=== PATIENT | male | born 1950 | race Caucasian/White ===

== ENCOUNTER 2018-05-13 07:15 | Emergency (ER) | payer OTHER ==
[~2018-05-13] VITALS: Ht 185.4 cm; Wt 90.9 kg
[~2018-05-13 07:15] MED LIST: PRILOSEC 20MG20 MG PO; TUMS500 MG PO; TYLENOL 500MG500 MG PO
[2018-05-13 07:22] VITALS: TEMP 97.4
[2018-05-13 07:31] LABS: HEMATOCRIT 42.4 % (42.0-52.0); HEMOGLOBIN 13.9 g/dl (13.5-18.0); MEAN CELL VOLUME 89 fl (80.0-100.0); MEAN CORPUSCULAR HEMOGLOBIN 29 pg (27.0-31.0); MEAN CORPUSCULAR HGB CONC 33 g/dl (33.0-37.0); MEAN PLATELET VOLUME 9.7 fl (7.4-10.4); PLATELET COUNT 196 K/mm3 (130-400); RED BLOOD COUNT 4.76 M/mm3 (4.20-5.60); REDCELL DISTRIBUTION WIDTH-CV 13.2 % (11.5-14.5)
[2018-05-13 07:50] LABS: BAND 2 % (0-10); BASOPHIL 1 % (0-2); EOSINOPHIL 4 % (0-4); LYMPHOCYTE 37 % (20.0-51.0); NEUTROPHILS 52 % (42.0-75.2); PLATELET ESTIMATE NORMAL (NORMAL)
[2018-05-13 07:53] LABS: ALBUMIN 4.4 gm/dL (3.5-5.0); BILIRUBIN,TOTAL 0.5 mg/dL (0.0-1.0); CALCIUM 9.1 mg/dL (8.4-10.2); CREATININE, serum 0.95 mg/dL (0.66-1.25); POTASSIUM 3.9 mmol/L (3.4-5.0); TOTAL PROTEIN 7.5 gm/dL (6.4-8.2)
[2018-05-13 08:02] LABS: PROTHROMBIN TIME 11.2 SECONDS (9.7-12.8)
[2018-05-13 08:20] LABS: COLLECTION METHOD CLEAN CATCH
[2018-05-13 08:27] LABS: PH 6 (5-8); SQUAMOUS EPITHELIAL None Seen /hpf; URINE APPEARANCE Clear; URINE BACTERIA None Seen /hpf; URINE BILIRUBIN Negative (NEGATIVE); URINE BLOOD Negative (NEGATIVE); URINE COLOR Yellow; URINE GLUCOSE Negative (NEGATIVE); URINE KETONE Negative (NEGATIVE); URINE LEUKOCYTE ESTERASE Negative (NEGATIVE); URINE NITRATE Negative (NEGATIVE); URINE PROTEIN(semi-quant) 2+ (NEGATIVE); URINE RBC 0-2 /hpf; URINE UROBILINOGEN Negative (NEGATIVE)
[2018-05-13] MEDS ORDERED: ANTIVERT 25MG25 MG PO (12:37)
[2018-05-13] MEDS ORDERED: OMNICEF 300MG300 MG PO (12:44)
[2018-05-13 13:47] VITALS: BP 155/96; PULSE 70
== END 2018-05-13 13:15 | disposition home or self-care (01) ==
LOC: COL.ER 07:15
PROVIDERS: Emergency Medicine
DX: H81.399 Other peripheral vertigo, unspecified ear (principal)
CPT/HCPCS: A9585; J2060; J2405; J7030

== ENCOUNTER 2019-11-26 11:17 | Inpatient (IN) | payer OTHER ==
[~2019-11-26] VITALS: Ht 185.4 cm; Wt 80.6 kg
[2019-11-26] VITALS (233 sets, daily range): BP systolic 129–162; BP diastolic 70–82; PULSE 75–88; TEMP 98.1–98.2; O2SAT 89–95
[~2019-11-26 11:17] MED LIST changes: +ANTIVERT 25MG25 MG PO; +OMNICEF 300MG300 MG PO
[2019-11-26 11:41] LABS: BASO % 0.1 % (0.0-2.0); EOS % 0.3 % (0-4.0); GRAN # 9.1 (1.4-6.5); GRAN % 63.6 % (42.2-75.2); HEMATOCRIT 39.6 % (42.0-52.0); HEMOGLOBIN 13.2 g/dl (13.5-18.0); LYMPH # 4.6 (1.2-3.4); LYMPH % 32.2 % (20.0-51.0); MEAN CELL VOLUME 87 fl (80.0-100.0); MEAN CORPUSCULAR HEMOGLOBIN 29 pg (27.0-31.0); MEAN CORPUSCULAR HGB CONC 33 g/dl (33.0-37.0); MEAN PLATELET VOLUME 10.2 fl (7.4-10.4); MONO # 0.5 (0.1-0.6); MONO % 3.4 % (1.7-9.3); PLATELET COUNT 202 K/mm3 (130-400); RED BLOOD COUNT 4.58 M/mm3 (4.20-5.60); REDCELL DISTRIBUTION WIDTH-CV 13.7 % (11.5-14.5)
[2019-11-26 11:55] LABS: ALBUMIN 4.4 gm/dL (3.5-5.0); BILIRUBIN,TOTAL 0.6 mg/dL (0.0-1.0); CALCIUM 9.5 mg/dL (8.4-10.2); CREATININE, serum 0.69 (0.66-1.25); POTASSIUM 4.3 mmol/L (3.4-5.0); TOTAL PROTEIN 7.7 gm/dL (6.4-8.2)
[2019-11-26 15:04] LABS: COLLECTION METHOD CLEAN CATCH
[2019-11-26 15:32] LABS: MUCOUS Present /lpf; PH 7 (5-8); SQUAMOUS EPITHELIAL None Seen /hpf; URINE APPEARANCE Clear; URINE BACTERIA None Seen /hpf; URINE BILIRUBIN Negative (NEGATIVE); URINE BLOOD Negative (NEGATIVE); URINE COLOR Yellow; URINE GLUCOSE Negative (NEGATIVE); URINE KETONE Negative (NEGATIVE); URINE LEUKOCYTE ESTERASE Negative (NEGATIVE); URINE NITRATE Negative (NEGATIVE); URINE PROTEIN(semi-quant) Negative (NEGATIVE); URINE RBC 0-2 /hpf; URINE UROBILINOGEN Negative (NEGATIVE)
[2019-11-26 15:58] LABS: TROPONIN-I < 0.012 ng/mL (0.000-0.035)
[2019-11-27] VITALS (437 sets, daily range): BP systolic 133–184; BP diastolic 70–98; PULSE 57–76; TEMP 97.6–98.7; O2SAT 90–97
[2019-11-27 05:19] LABS: BASO # 0.1 (0.0-0.2); BASO % 0.4 % (0.0-2.0); EOS # 0.1 (0.0-0.7); EOS % 0.4 % (0-4.0); GRAN # 8.4 (1.4-6.5); GRAN % 60.1 % (42.2-75.2); HEMOGLOBIN 11.6 g/dl (13.5-18.0); LYMPH # 4.4 (1.2-3.4); LYMPH % 31.7 % (20.0-51.0); MEAN CELL VOLUME 88 fl (80.0-100.0); MEAN CORPUSCULAR HEMOGLOBIN 29 pg (27.0-31.0); MEAN CORPUSCULAR HGB CONC 33 g/dl (33.0-37.0); MEAN PLATELET VOLUME 10.1 fl (7.4-10.4); MONO % 6.8 % (1.7-9.3); PLATELET COUNT 179 K/mm3 (130-400); RED BLOOD COUNT 4.03 M/mm3 (4.20-5.60); REDCELL DISTRIBUTION WIDTH-CV 13.9 % (11.5-14.5)
[2019-11-27 05:21] LABS: HEMATOCRIT 35.4 % (42.0-52.0)
[2019-11-27 05:45] LABS: ALBUMIN 3.5 gm/dL (3.5-5.0); BILIRUBIN,TOTAL 0.6 mg/dL (0.0-1.0); CALCIUM 8.6 mg/dL (8.4-10.2); CREATININE, serum 0.74 (0.66-1.25); POTASSIUM 3.6 mmol/L (3.4-5.0); TOTAL PROTEIN 6.2 gm/dL (6.4-8.2)
[2019-11-27 15:46] LABS: CSF APPEARANCE CLEAR; CSF COLOR COLORLESS; CSF RBC 0 /mm3 (0-0)
[2019-11-27 15:56] LABS: CSF POLYMORPHONUCLEAR 0 % (0-6)
[2019-11-27 15:57] LABS: CSF MONONUCLEAR 100 % (70-100)
[2019-11-27 21:34] LABS: TOTAL PROTEIN,CSF 42 mg/dL (15-45)
[2019-11-28] VITALS (8 sets, daily range): BP systolic 168–192; BP diastolic 78–96; PULSE 62–77; TEMP 97.8–98.5
[2019-11-28 08:05] LABS: HEMATOCRIT 37.6 % (42.0-52.0); HEMOGLOBIN 12.4 g/dl (13.5-18.0); MEAN CELL VOLUME 88 fl (80.0-100.0); MEAN CORPUSCULAR HEMOGLOBIN 29 pg (27.0-31.0); MEAN CORPUSCULAR HGB CONC 33 g/dl (33.0-37.0); MEAN PLATELET VOLUME 9.7 fl (7.4-10.4); PLATELET COUNT 171 K/mm3 (130-400); RED BLOOD COUNT 4.28 M/mm3 (4.20-5.60); REDCELL DISTRIBUTION WIDTH-CV 13.9 % (11.5-14.5)
[2019-11-28 08:22] LABS: CALCIUM 8.8 mg/dL (8.4-10.2); CREATININE, serum 0.9 (0.66-1.25); POTASSIUM 3.5 mmol/L (3.4-5.0)
[2019-11-28 08:30] LABS: EOSINOPHIL 1 % (0-4); LYMPHOCYTE 36 % (20.0-51.0); NEUTROPHILS 61 % (42.0-75.2); PLATELET ESTIMATE NORMAL (NORMAL)
[2019-11-29] VITALS (8 sets, daily range): BP systolic 156–200; BP diastolic 82–92; PULSE 57–68; TEMP 97.6–99.2
[2019-11-29 06:25] LABS: HEMATOCRIT 41.6 % (42.0-52.0); HEMOGLOBIN 13.2 g/dl (13.5-18.0); MEAN CELL VOLUME 89 fl (80.0-100.0); MEAN CORPUSCULAR HEMOGLOBIN 28 pg (27.0-31.0); MEAN CORPUSCULAR HGB CONC 32 g/dl (33.0-37.0); MEAN PLATELET VOLUME 10.1 fl (7.4-10.4); PLATELET COUNT 181 K/mm3 (130-400); REDCELL DISTRIBUTION WIDTH-CV 13.7 % (11.5-14.5)
[2019-11-29 06:33] LABS: CALCIUM 9.2 mg/dL (8.4-10.2); CREATININE, serum 0.97 (0.66-1.25); POTASSIUM 3.7 mmol/L (3.4-5.0)
[2019-11-29 08:10] LABS: EOSINOPHIL 3 % (0-4); NEUTROPHILS 49 % (42.0-75.2); PLATELET ESTIMATE NORMAL (NORMAL)
[2019-11-29 08:22] LABS: LYMPHOCYTE 40 % (20.0-51.0)
[2019-11-29 08:37] LABS: PATHOLOGY DIFF REVIEW OK
[2019-11-30] VITALS (7 sets, daily range): BP systolic 132–196; BP diastolic 48–93; PULSE 58–71; TEMP 97.6–99.1
[2019-11-30 12:34] LABS: ALBUMIN 3.7 gm/dL (3.5-5.0); BILIRUBIN,TOTAL 0.8 mg/dL (0.0-1.0); CALCIUM 9.2 mg/dL (8.4-10.2); CREATININE, serum 0.92 (0.66-1.25); TOTAL PROTEIN 6.3 gm/dL (6.4-8.2)
[2019-11-30 13:04] LABS: TSH w REFLEX 2.63 uIU/mL (0.465-4.680)
[2019-11-30 13:07] LABS: HEMATOCRIT 40.8 % (42.0-52.0); HEMOGLOBIN 13.5 g/dl (13.5-18.0); MEAN CELL VOLUME 88 fl (80.0-100.0); MEAN CORPUSCULAR HEMOGLOBIN 29 pg (27.0-31.0); MEAN CORPUSCULAR HGB CONC 33 g/dl (33.0-37.0); MEAN PLATELET VOLUME 10.4 fl (7.4-10.4); PLATELET COUNT 204 K/mm3 (130-400); RED BLOOD COUNT 4.65 M/mm3 (4.20-5.60)
[2019-12-01] VITALS (8 sets, daily range): BP systolic 99–172; BP diastolic 66–112; PULSE 60–76; TEMP 97.1–98.3
[2019-12-01 07:13] LABS: HEMATOCRIT 41.2 % (42.0-52.0); HEMOGLOBIN 13.4 g/dl (13.5-18.0); MEAN CELL VOLUME 87 fl (80.0-100.0); MEAN CORPUSCULAR HEMOGLOBIN 28 pg (27.0-31.0); MEAN CORPUSCULAR HGB CONC 33 g/dl (33.0-37.0); MEAN PLATELET VOLUME 10.3 fl (7.4-10.4); PLATELET COUNT 205 K/mm3 (130-400); RED BLOOD COUNT 4.74 M/mm3 (4.20-5.60); REDCELL DISTRIBUTION WIDTH-CV 13.7 % (11.5-14.5)
[2019-12-01 07:25] LABS: CALCIUM 9.2 mg/dL (8.4-10.2); CREATININE, serum 0.94 (0.66-1.25); POTASSIUM 3.4 mmol/L (3.4-5.0)
[2019-12-01 08:19] LABS: BAND 7 % (0-10); BASOPHIL 2 % (0-2); EOSINOPHIL 2 % (0-4); NEUTROPHILS 39 % (42.0-75.2)
[2019-12-01 08:20] LABS: LYMPHOCYTE 41 % (20.0-51.0)
[2019-12-02 01:04] VITALS: BP 126/75; PULSE 60; TEMP 97.6
[2019-12-02 04:12] VITALS: BP 127/74; PULSE 56; TEMP 97.6
[2019-12-02 07:54] VITALS: BP 126/69; PULSE 60; TEMP 98
[2019-12-02 12:10] VITALS: BP 135/82; PULSE 65; TEMP 97.7
[2019-12-02 15:38] VITALS: BP 109/68; PULSE 60; TEMP 97.7
[2019-12-02 19:42] VITALS: BP 136/79; PULSE 68; TEMP 97.3
[2019-12-02 20:15] LABS: CREATININE, serum 0.94 (0.66-1.25)
[2019-12-02 20:16] LABS: URINE TOTAL VOLUME 625 mL
[2019-12-02 20:32] LABS: URINE CREATININE CLEARANCE 62.4 mL/min (97-137)
[2019-12-03 00:19] VITALS: BP 127/77; PULSE 60; TEMP 98.3
[2019-12-03 04:10] VITALS: BP 147/78; PULSE 62; TEMP 97.5
[2019-12-03 08:00] VITALS: BP 151/88; PULSE 62; TEMP 98.8
[2019-12-03 09:31] VITALS: BP 139/85; PULSE 65; TEMP 97.8
[2019-12-03 11:03] LABS: HEMATOCRIT 43.4 % (42.0-52.0); HEMOGLOBIN 14.3 g/dl (13.5-18.0); MEAN CELL VOLUME 88 fl (80.0-100.0); MEAN CORPUSCULAR HEMOGLOBIN 29 pg (27.0-31.0); MEAN CORPUSCULAR HGB CONC 33 g/dl (33.0-37.0); PLATELET COUNT 238 K/mm3 (130-400); RED BLOOD COUNT 4.93 M/mm3 (4.20-5.60); REDCELL DISTRIBUTION WIDTH-CV 14.1 % (11.5-14.5)
[2019-12-03 11:14] LABS: CALCIUM 9.5 mg/dL (8.4-10.2); CREATININE, serum 1.31 (0.66-1.25); POTASSIUM 3.8 mmol/L (3.4-5.0)
[2019-12-03 13:14] VITALS: BP 107/49; PULSE 88; TEMP 98.3
[2019-12-03 13:17] LABS: BAND 9 % (0-10); LYMPHOCYTE 47 % (20.0-51.0); NEUTROPHILS 40 % (42.0-75.2)
[2019-12-03] MEDS ORDERED: ZESTRIL40 MG PO (13:17)
[2019-12-03] MEDS ORDERED: NORVASC 10MG10 MG PO (13:17)
[2019-12-03 13:18] LABS: PLATELET ESTIMATE NORMAL (NORMAL)
[2019-12-04 11:42] LABS: HSV 2 DNA PCR QUAL Not Detected (())
== END 2019-12-03 16:30 | disposition home or self-care (01) | DRG 305 ==
LOC: COL.ER 11:17 → IMCU 15:03 → MEDICAL 15:03 → IMCU 11-27 16:27 → MEDICAL 11-27 18:31
PROVIDERS: Family Medicine; Internal Medicine Nephrology; Nurse Practitioner Family; Physician Assistant; Student in an Organized Health Care Education/Training Program; ADMIT Student in an Organized Health Care Education/Training Program
PROC: 009U3ZX Drainage of Spinal Canal, Percutaneous Approach, Diagnostic (ICD-10-PCS; principal; 2019-11-27)
DX: I16.1 Hypertensive emergency (principal); I67.4 Hypertensive encephalopathy; R65.10 Systemic inflammatory response syndrome (SIRS) of non-infectious origin without acute organ dysfunction; Z66 Do not resuscitate; R73.9 Hyperglycemia, unspecified; R42 Dizziness and giddiness; I95.9 Hypotension, unspecified; Z87.891 Personal history of nicotine dependence
CPT/HCPCS: 99223-AI; 99232-AI; 99233-AI; A9585; J0360; J0692; J1650; J1885; J2405; J2550; J3370; J7030; J7040; J7050; J7120; Q9967

== ENCOUNTER 2021-08-20 17:27 | Observation (INO) | payer OTHER ==
[~2021-08-20] VITALS: Ht 185.4 cm; Wt 92.3 kg
[~2021-08-20 17:27] MED LIST changes: +HCTZ 25MG TAB25 MG PO; +LIPITOR 10MG10 MG PO; +NORVASC 10MG10 MG PO; +NORVASC 5MG5 MG/TAB PO; +PLAVIX 75MG TAB75 MG PO; +ZESTRIL40 MG PO
[2021-08-20 17:47] LABS: BASO # 0.1 K/mm3 (0.0-0.2); BASO % 0.3 % (0.0-2.0); EOS % 0.1 % (0.0-4.0); GRAN # 13.7 K/mm3 (1.4-6.5); GRAN % 71.9 % (42.2-75.2); HEMATOCRIT 43.1 % (42.0-52.0); LYMPH # 4.4 K/mm3 (1.2-3.4); LYMPH % 22.8 % (20.0-51.0); MEAN CELL VOLUME 87 fl (80.0-100.0); MEAN CORPUSCULAR HEMOGLOBIN 28 pg (27-31); MEAN CORPUSCULAR HGB CONC 33 g/dl (33.0-37.0); MEAN PLATELET VOLUME 9.9 fl (7.4-10.4); MONO # 0.8 K/mm3 (0.1-0.6); MONO % 4.3 % (1.7-9.3); PLATELET COUNT 256 K/mm3 (130-400); RED BLOOD COUNT 4.97 M/mm3 (4.20-5.60)
[2021-08-20 18:08] LABS: ALBUMIN 4.4 gm/dL (3.4-4.8); BILIRUBIN,TOTAL 0.6 mg/dL (0.2-1.2); C-REACTIVE PROTEIN 0.56 mg/dL (0.00-0.50); CALCIUM 9.5 mg/dL (8.4-10.2); CREATININE, serum 1.36 mg/dL (0.72-1.25); POTASSIUM 4.6 mmol/L (3.5-4.5)
[2021-08-20] MEDS ORDERED: ASPIRIN 81M81 MG/TA2 PO (18:13)
--- NOTE | 2021-08-20 23:00 | NUR ---
PT ARRIVED TO ROOM VIA ER CART, AMBULATED FROM CART TO BED WITH SBA. GAIT IS STEADY, PT USES CANE FROM HOME. IVF INFUSING INTO PERIPHERAL IV. PT IS PLEASANT, DENIES PAIN, STATES THAT "WHATEVER THAT SHOT WAS THAT THEY GAVE ME REALLY WORKED". PT STATES THAT HE IS HUNGRY, EATS 2 CUPS OF BEEF BROTH ET CRACKERS. PT EDUCATED ON NPO STATUS AFTER MIDNIGHT R/T POSSIBILITY OF SURGERY. PT ALSO EDUCATED ON PAIN ET MEDICATIONS, VERBALIZES UNDERSTANDING. USES URINAL X1. URINE IS BALWINDER ET CLOUDY BUT NO STONES ARE PRESENT WHEN STRAINED. PT DENIES OTHER NEEDS, TALKS TO GIRLFRIEND ON PHONE. RESPIRATIONS UNLABORED. CALL LIGHT WITHIN REACH.
[2021-08-21] VITALS (9 sets, daily range): BP systolic 102–142; BP diastolic 52–79; PULSE 74–83; TEMP 97.6–98.3
--- NOTE | 2021-08-21 01:36 | NUR ---
PT IS RESTING IN BED, HAS BEEN SLEEPING. PT HAS DENIED PAIN WHEN ASKED IF HE IS HAVING ANY. RESPIRATIONS UNLABORED. CALL LIGHT WITHIN REACH.
--- NOTE | 2021-08-21 03:59 | NUR ---
PT IS SLEEPING. IVF INFUSING. RESPIRATIONS UNLABORED. CALL LIGHT WITHIN REACH.
--- NOTE | 2021-08-21 07:16 | NUR ---
Pt left for procedure at this time.
[2021-08-21] MEDS ORDERED: PERCOCET 325 MG1 TA2 PO (08:38)
--- NOTE | 2021-08-21 09:35 | NUR ---
Pt back from procedure at this time. He is A/O x4. His breathing is even and unlabored on RA. Pt denies SOB. Denies any pain or N/T. No N/V, tolerating PO intake at this time. Urinating per urinal with vini urine. POC discussed with patient who verbalizes understanding. No further needs at this time. Call light within reach.
--- NOTE | 2021-08-21 10:55 | NUR ---
SW met with the patient to discuss discharge plan. The patient lives in [place] with his girlfriend, Cathie Stein (ph#[phone]). He reports independence with ADLs and has a cane. The patient does not have a PCP and he was not interested in the hospital getting him set up with a PCP. He reports that him and his girlfriend go to a clinic, when needed. He could not recall the clinic's name. He receives his medications from [facility]. The patient's DPOA-HC is in EMR and it designates his girlfriend. The patient plans on returning home with his girlfriend upon discharge. No additional needs at this time. *Discharge plan: home with girlfriend*
--- NOTE | 2021-08-21 11:58 | NUR ---
Discharge paperwork and instructions reviewed with patient. All questions answered at this time. IV to LAC dc'd catheter tip intact.
--- NOTE | 2021-08-21 12:25 | NUR ---
Pt wheeled out of facility by staff member at this time.
== END 2021-08-21 12:25 | disposition home or self-care (01) ==
LOC: COL.ER 17:27 → SURG 19:03
PROVIDERS: Family Medicine; ADMIT Urology
DX: N20.1 Calculus of ureter (principal); I10 Essential (primary) hypertension; E78.5 Hyperlipidemia, unspecified; Z87.891 Personal history of nicotine dependence; Z79.82 Long term (current) use of aspirin; Z79.899 Other long term (current) drug therapy; Z79.02 Long term (current) use of antithrombotics/antiplatelets; Z79.01 Long term (current) use of anticoagulants
CPT/HCPCS: C1769; C2617; G0378; J0690; J0696; J1885; J2270; J2405; J2550; J2704; J3010; J7030; J7120; Q9967